=== PATIENT | male | born 1975 | race Native Hawaiian/Other Pacific Islander ===

== ENCOUNTER 2022-08-09 09:42 | Day surgery (SDC) | payer OTHER, SELFPAY ==
[2022-08-08 07:57] VITALS: BMI 30.5
[2022-08-09] VITALS (9 sets, daily range): BP systolic 101–141; BP diastolic 67–92; PULSE 80–96; RESP 9–20; TEMP 36–36.4; O2SAT 97–100; BMI 30.5
[2022-08-09] MEDS: LACTATED RINGERS 1,000 ML 42 ML IV (09:55)
--- NOTE | 2022-08-09 10:15 | PM.PREOP ---
Pre-operative Note COVID-19 Criteria for continued procedure: Expected advancement of disease process, Deterioration of the patient's condition or overall health, Delay expected to result in less-positive ultimate med/surg outcome and Non-surgical alternatives not available or appropriate per current SOC Interval Note History & Physical reviewed/Exam performed by Physician: Yes Changes to H&P: No
[2022-08-09] MEDS: CEFAZOLIN 2 GM/100 ML PREMIX 100 ML IV (10:25)
--- NOTE | 2022-08-09 10:53 | SUR.OPER ---
Supine on padded OR bed, head on pillow, arms secured on padded arm boards at <90 degrees abduction, legs uncrossed, safety belt at thigh, tape over blanket over lower legs.
[2022-08-09] MEDS: BUPIVACAINE LIPOSOME 266 MG/20 ML VIAL INJ (11:00)
[2022-08-09] MEDS: BUPIVACAINE 0.5% W/ EPI (PF) 30 ML VIAL INJ (11:01)
[2022-08-09] MEDS: BACITRACIN 28 GM OINT 1 APPLIC TOP (11:35)
--- NOTE | 2022-08-09 11:53 | P.OP_ITS ---
Operative Date/Time/Diagnoses Date of procedure: 08/09/22 Time of procedure: 11:53 Pre-op diagnosis: 1. Desires sterility. 2. Bilateral hydroceles. Post-op diagnosis: same Procedure & Clinicians Procedure: 1. Bilateral hydrocelectomy (bottle neck technique). 2. Vasectomy. Same procedure as scheduled: Yes Indications: 1. Bilateral hydroceles. 2. Desires sterility. Surgeon: Aparna Bruno Click Yes if Unassisted: Yes Anesthesia Type: General and Local (1.33% Exparel and 0.5% Marcaine with epinephrine.) Operative Notes Findings: 1. Bilateral hydroceles with clear straw colored fluid. 2. Normal testicular appendages- cautery excised. 3. Bilateral cysts of the tunica albuginea Closure Type: primary Specimen(s): none sent Estimated Blood Loss (mL): 1 Blood products transfused: none Procedure in detail: The patient was positioned in supine administered general anesthesia. The lower abdomen, genitalia, and groin were then prepped and draped in sterile fashion. A solution of 0.5% Marcaine with epinephrine was then infiltrated into the skin and subcutaneous dartos fascia in the midline scrotum. The needle-tip cautery pen was then used to create a midline incision in the scrotal raphae. Further cautery pen division of the dartos fascia was conducted toward the right down to the level of the tunica vaginalis. A small opening was then created in the tunica vaginalis and clear, straw-colored fluid was drained from within. The te stis and epididymis were then gently extruded through the small opening and the tunica vaginalis was then reflected superiorly. The testicular appendage was amputated with the cautery pen. It was then tacked along the perimeter of the cord using interrupted 2 Monocryl. The vas deferens was then carefully isolated using blunt, sharp, and cautery technique. The vas hook was then used to engage the vas and with gentle pressure a loop was brought up above the operative plain. Medium surgical clips were then applied proximally and distally. A small segment of the vas was then excised with the cautery pen in the lumen cauterized further. Two the level of the clip. Next, the same steps and maneuvers were performed on the left side to accomplish bilateral bottle neck hydrocelectomy and bilateral vasectomy. The testes were then repositioned in respective hemiscrotum anatomically. The midline septum was then engaged with Allis clamps and gentle traction applied. The dartos fascia was then closed, including the midline septum, using a running vertical mattress of 2-0 Monocryl. The skin was then reapproximated using a running horizontal mattress of 4-0 Monocryl. The skin surface was cleaned and dried. Bacitracin antibiotic ointment was applied to the incision line. Dry sterile fluffs were then applied to the scrotum and the patient was fitted with an athletic supporter. The patient was then awakened, transferred to [facility], and transported to recovery in stable condition. Complications: none Post-operative Condition: stable Disposition: PACU Plan for aftercare: Discharge home.
[2022-08-09] MEDS: fentaNYL 100 MCG/2 ML INJ IV ×2 (12:10→12:27)
[2022-08-09] MEDS: OXYCODONE/ACETAMINOPHEN 5/325 TABLET 1 TAB PO (12:14)
== END 2022-08-09 13:09 | disposition home or self-care (01) ==
PROVIDERS: Referring Provider Specialist; Visit Provider Specialist
PROC: (CPT 55060; principal; 2022-08-09 09:45)
PROC: (CPT 55250; 2022-08-09 09:45)
DX: N43.3 Hydrocele, unspecified (principal); Z30.2 Encounter for sterilization; N44.1 Cyst of tunica albuginea testis
CPT/HCPCS: 55060; 55250; C9290; J0690; J1100; J2405; J2704; J3010

== ENCOUNTER 2023-04-28 09:04 | Emergency (ER) | payer OTHER, SELFPAY ==
[2023-04-28] VITALS (10 sets, daily range): BP systolic 121–185; BP diastolic 92–108; PULSE 79–91; RESP 12–24; TEMP 36.6; O2SAT 97–100; BMI 29.7
--- NOTE | 2023-04-28 09:36 | DI.RAD.S_ITS ---
PROCEDURE: XR CHEST 1V INDICATIONS: chest pain TECHNIQUE: One view of the chest was acquired. COMPARISON: None. FINDINGS: Surgical changes and devices: None. Lungs and pleura: Lungs are clear. No pleural effusions or pneumothorax. Mediastinum: Mediastinal contours appear normal. Heart size is normal. Bones and chest wall: No suspicious bony lesions. Overlying soft tissues appear unremarkable. IMPRESSION: No acute cardiopulmonary abnormality. Dictated by: Zhen Gonzalez M.D. on 04/28/2023 at 10:43 Approved by: Zhen Gonzalez M.D. on 04/28/2023 at 10:43
[2023-04-28 09:57] LABS: INR 0.9 (0.9-1.3); Prothrombin Time 9.9 SECONDS (10.1-12.7)
[2023-04-28 09:59] LABS: PTT Partial Thromboplastin Tim 31 SECONDS (26-36)
[2023-04-28 10:05] LABS: Alanine Aminotransferase 34 IU/L (<50); Albumin 4.6 g/dL (3.5-5.0); Albumin Globulin Ratio 1.7 (1.0-2.8); Alkaline Phosphatase 40 U/L (38-126); Aspartate Aminotransferase 49 IU/L (17-59); Bilirubin Total 0.6 mg/dL (0.2-1.3); Blood Urea Nitrogen 12 mg/dL (9-20); Calcium 9.7 mg/dL (8.4-10.2); Carbon Dioxide 30 mmol/L (22-32); Chloride 96 mmol/L (98-107); Creatine Kinase 86 U/L (55-170); Estimated Glomerular Filt Rate > 60 mL/min (>60); Globulin 2.7 g/dL (1.7-4.1); Glucose 107 mg/dL (70-100); HEMOLYSIS 16 (0-50); Lipase 64 U/L (23-300); Magnesium 1.8 mg/dL (1.6-2.3); Potassium 4.1 mmol/L (3.4-5.1); Sodium 135 mmol/L (137-145); Total Protein 7.3 g/dL (6.3-8.2)
[2023-04-28 10:14] LABS: Troponin I < 0.012 ng/mL (0.01-0.034)
--- NOTE | 2023-04-28 10:30 | PC.NURSE ---
Patient states chest pain started yesterday, and at work today he felt his hands being shaky and checked his BP which was high. Pt had a coworker who gave him one of his lisinopril 10mg to take. Pt states he is not prescribed lisinopril. Pt informed of risks due to taking medications not prescribed. He denies lightheaded at rest, but states occasionally he has been getting lightheaded/dizzy. C/O transient hand tingling.
[2023-04-28 10:37] LABS: Add Manual Diff / Slide Review NO; Basophils Absolute Auto 200 /uL (0-100); Basophils Percent Auto 4.3 % (0-2); Eosinophils Absolute Auto 200 /uL (0-450); Eosinophils Percent Auto 3.3 % (2-4); Hematocrit 44.4 % (41-53); Hemoglobin 15.9 g/dL (13.5-17.5); Lymphocytes Absolute Auto 600 /uL (1100-4500); Lymphocytes Percent Auto 13.3 % (25-40); Mean Corpuscular HGB Conc 35.8 % (30-36); Mean Corpuscular Hemoglobin 37.5 PG (26-34); Mean Corpuscular Volume 104.7 fL (80-100); Monocytes Absolute Auto 200 /uL (0-900); Monocytes Percent Auto 3.4 % (3-14); Neutrophils Absolute Auto 3500 /uL (1500-7000); Neutrophils Percent Auto 75.7 % (50-75); Platelet Count 163 X10^3/uL (150-400); Red Blood Cell Count 4.24 X10^6/uL (4.5-5.9); Red Cell Distribution Width 12.1 % (11.6-14.8); White Blood Cell Count 4.6 X10^3/uL (4.5-11.0)
--- NOTE | 2023-04-28 10:59 | ED.CHESTPAIN ---
HPI - Chest Pain General Chief Complaint: Chest Pain Stated Complaint: being sent DR wynne BP 201/125 Chest pain Time Seen by Provider: 04/28/23 09:38 Source: patient Mode of arrival: Ambulatory Limitations: no limitations History of Present Illness HPI narrative: This is a 47-year-old male with history of hypertension, chronic back pain, hypothyroidism who presents with complaint of elevated blood pressure and some chest tightness this morning. Patient states he occasionally checks his blood pressure especially when he does not feel good. At 7:50 a.m. this morning he had a 176/126. He has a blood pressure cuff at his desk. He states he felt off today jittery felt little pressure in his chest but he states he has been very anxious. He is had some personal stress at work but also his girlfriend has been very stressed about her work situation and is being forced to start working nights and he states this has been a stressor for both of them. He states it is gone currently. He states symptoms started last night. He denies any shortness of breath at any point no diaphoresis. He states his right hand felt tingling as well as his left foot when this was occurring. He denies any radiation. States it was substernal. No nausea no vomiting no issues with bowel movements, no diarrhea constipation, dysuria urgency or frequency. Patient denies any swelling in extremities. Patient states he has been on HCTZ/losartan, Mobic, Synthroid and Flexeril and has prn sildenafil. His co-worker told him his blood pressure was too high so he took an extra lisinopril 10 mg this morning at 7:50 a.m. patient states he does not normally do that. No known drug allergies. Drinks 2-3 alcoholic drinks daily 4-5 on the weekend. Smokes 2/3 pack per day, no recreational drugs or illicit. His primary care is at the [facility]. Related Data Home Medications Medication Instructions Recorded Confirmed hydrochlorothiazide 25 mg tablet 25 mg PO DAILY 08/09/22 09/05/22 levothyroxine 50 mcg tablet 50 mcg PO DAILY 08/09/22 09/05/22 losartan 25 mg tablet 25 mg PO DAILY 08/09/22 09/05/22 cyclobenzaprine 5 mg tablet 5 mg PO TID PRN 09/05/22 09/05/22 Previous Rx's Medication Instructions Recorded hydrochlorothiazide 50 mg tablet 50 mg PO DAILY #30 tabs 04/28/23 Allergies Allergy/AdvReac Type Severity Reaction Status Date / Time No Known Drug Allergies Allergy Verified 04/28/23 09:36 Review of Systems Review of Systems ROS Unobtainable: All systems reviewed & are unremarkable except as noted in HPI and below Patient History Medical History Sleep apnea Bilateral hydrocele Sterilization consult High blood pressure Social History marital status: unmarried,single household members: significant other Smoking Status: Current every day smoker alcohol intake: current Smoking Status: Current every day smoker alcohol intake frequency: 3 or more drinks per day Alcohol type: hard liquor Substance Use Type: does not use Exam Narrative Exam Narrative: GENERAL: Alert and oriented x three, well-appearing male in mild distress. HEENT: Head normocephalic, atraumatic, EOMI, pupils reactive, face symmetric, moist mucous membranes NECK: Supple, full range of motion CARDIOVASCULAR: Regular rate and rhythm without murmurs, rubs or gallops. RESPIRATORY: Breath sounds equal bilaterally, no wheezes rales or rhonchi. No tachypnea or accessory muscle use. ABDOMEN: Soft, nontender. Normoactive bowel sounds all 4 quadrants. No guarding or rebound, rigidity, no mass, no pulsatile bruit or mass. : No CVA tenderness EXTREMITIES: Normal range of motion, no edema. Neurovascularly intact NEUROLOGICAL: Cranial nerves II through XII grossly intact. Moving all extremities SKIN: Warm, dry, no petechiae, no rashes or lesions. Initial Vital Signs Initial Vital Signs: Vital Signs Pulse Rate 88 04/28/23 09:22 Respiratory Rate 21 04/28/23 09:22 Blood Pressure 181/106 H 04/28/23 09:22 Pulse Oximetry 100 04/28/23 09:22 Scores HEART Score Heart Score history: Moderately Suspicious Heart Score EKG: Normal Heart Score Age: 45-64 years old Heart Score risk factors: 1-2 risk factors Heart Score troponin: < or = to normal limit Heart Score Total: 3 Course Orders Ordered: ED Orders 04/28/23 09:36 XR chest 1V Stat 04/28/23 12:05 Trop I [Troponin I] Stat Discontinued Medications Aspirin (Aspirin 81 Mg Chew Tab) 324 mg PO NOW ONE Stop: 04/28/23 09:37 Last Admin: 04/28/23 13:11 Dose: Not Given Documented By: SPF Vital Signs Vital signs: Vital Signs - 8 hr 04/28/23 11:00 04/28/23 11:00 04/28/23 11:33 Pulse Rate 80 91 H Respiratory Rate 24 Blood Pressure 151/100 H Pulse Oximetry 99 Oxygen Delivery Method 04/28/23 12:00 04/28/23 12:10 04/28/23 12:10 Pulse Rate 89 86 Respiratory Rate 18 14 Blood Pressure 185/102 H Pulse Oximetry 99 100 Oxygen Delivery Method Room Air 04/28/23 12:30 04/28/23 13:00 Pulse Rate 86 89 Respiratory Rate 19 22 Blood Pressure Pulse Oximetry 97 98 Oxygen Delivery Method Room Air MDM - Chest Pain Lab Data 04/28/23 09:30 04/28/23 09:30 Labs: Lab Results 04/28/23 04/28/23 Range/Units 09:30 12:05 WBC 4.6 (4.5-11.0) X10^3/uL RBC 4.24 L (4.5-5.9) X10^6/uL Hgb 15.9 (13.5-17.5) g/dL Hct 44.4 (41-53) % MCV 104.7 H (80-100) fL MCH 37.5 H (26-34) PG MCHC 35.8 (30-36) % RDW 12.1 (11.6-14.8) % Plt Count 163 (150-400) X10^3/uL Neut % (Auto) 75.7 H (50-75) % Lymph % (Auto) 13.3 L (25-40) % [place] % (Auto) 3.4 (3-14) % Eos % (Auto) 3.3 (2-4) % Baso % (Auto) 4.3 H (0-2) % Neut # (Auto) 3500 (9094-1833) /uL Lymph # (Auto) 600 L (6178-3458) /uL [place] # (Auto) 200 (0-900) /uL Eos # (Auto) 200 (0-450) /uL Baso # (Auto) 200 H (0-100) /uL PT 9.9 L (10.1-12.7) SECONDS INR 0.9 (0.9-1.3) APTT 31 (26-36) SECONDS Sodium 135 L (137-145) mmol/L Potassium 4.1 (3.4-5.1) mmol/L Chloride 96 L (98-107) mmol/L Carbon Dioxide 30 (22-32) mmol/L BUN 12 (9-20) mg/dL Creatinine 1.00 (0.66-1.25) mg/dL Estimated GFR > 60 (>60) mL/min BUN/Creatinine Ratio 12.0 (6-22) Glucose 107 H (70-100) mg/dL Calcium 9.7 (8.4-10.2) mg/dL Magnesium 1.8 (1.6-2.3) mg/dL Total Bilirubin 0.6 (0.2-1.3) mg/dL AST 49 (17-59) IU/L ALT 34 (<50) IU/L Alkaline Phosphatase 40 (38-126) U/L Total Creatine Kinase 86 (55-170) U/L Troponin I < 0.012 0.014 (0.01-0.034) ng/mL Total Protein 7.3 (6.3-8.2) g/dL Albumin 4.6 (3.5-5.0) g/dL Globulin 2.7 (1.7-4.1) g/dL Albumin/Globulin Ratio 1.7 (1.0-2.8) Lipase 64 (23-300) U/L Imaging Data Chest x-ray: Radiologist's Impression: [place] [address] XRay Report Signed Patient: Burt Richardson MR#: [id number] : 1975 Acct:[id number] Age/Sex: 47 / M Date of Service: 04/28/23 Loc: ED Accession Number: [id number] Procedure: XR chest 1V Ordering Provider: Kenyatta Gongora D.O. PROCEDURE: XR CHEST 1V INDICATIONS: chest pain TECHNIQUE: One view of the chest was acquired. COMPARISON: None. FINDINGS: Surgical changes and devices: None. Lungs and pleura: Lungs are clear. No pleural effusions or pneumothorax. Mediastinum: Mediastinal contours appear normal. Heart size is normal. Bones and chest wall: No suspicious bony lesions. Overlying soft tissues appear unremarkable. IMPRESSION: No acute cardiopulmonary abnormality. Dictated by: Zhen Gonzalez M.D. on 04/28/2023 at 10:43 Approved by: Zhen Gonzalez M.D. on 04/28/2023 at 10:43 ECG Data Attestation: I personally reviewed and interpreted this ECG as follows: Prior ECG tracings: not available for review Interpretation: Sinus rhythm rate of 77 [place] 178 QRS of [address] No acute [address] elevation or depression appreciated small amount of motion artifact appears to be in V4 V5. 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 this morning no acute ST changes are appreciated on it rate is 85 MN 172 QRS 88 QTC 468. MDM Narrative Medical decision making narrative: 47-year-old male sent for elevated blood pressure and chest discomfort. Patient does track his pressures intermittently. He the beginning of the month had 130s over 90s pretty persistently he has been slowly trending up over the last week or 2 most recently was 175/105 systolic on his check. He was elevated upon arrival but has been trending down words during his stay as low as 120/92 but more closely 150s over 90s during his stay. Patient notes in the past when he is followed with his physician he tends to run about 150s systolic. And 90s diastolic. Patient did have some chest discomfort which resolved. This is when his blood pressure was elevated and why he checked it. His initial workup including CBC, CMP, LFTs, troponin and chest x-ray are negative. EKG does not show any obvious acute dynamic changes. He would a prior EKG from this morning which did not show any changes. Do not have any priors compared to this. Discussed with patient plan for repeat troponin if negative likely follow-up with primary care we discussed potentially altering his medications. Patient appears to be maxed out on his losartan dose 100 mg, HCTZ appears to be at 25 mg so will increase to 50mg HCTZ. Discharge Plan Departure Patient Disposition: Home Clinical Impression: Chest pain, Hypertension Activity Restrictions/Additional Instructions: Follow-up with your physician for recheck. Your blood pressure was improving here in the department. Continue to follow your blood pressure checking it once daily at varying times ensure these numbers with your physician. If you have had chest pain or pressure intermittently maybe appropriate to have follow up and discuss stress testing your physician as well. I also included contact information for Cardiology if he would like to follow up with them. Continue your home medications as prescribed. You can increase your HCTZ to 50 mg total daily. Prescription sent to [facility] in [place] Please return for new chest pain, shortness of breath, lightheadedness or passing out, diaphoresis or sweatiness, nausea or vomiting, new swelling in your extremities or other new or concerning changes. Prescriptions: New hydrochlorothiazide 50 mg tablet 50 mg PO DAILY Qty: 30 0RF No Action levothyroxine 50 mcg tablet 50 mcg PO DAILY losartan 25 mg Tablet 25 mg PO DAILY hydrochlorothiazide 25 mg Tablet 25 mg PO DAILY cyclobenzaprine 5 mg tablet 5 mg PO TID PRN Referrals: ProviderAsh [Primary Care Provider] - Candice Mendez MD [Physician] - Stand Alone Forms: Patient Portal/API
[2023-04-28 12:35] LABS: Troponin I 0.014 ng/mL (0.01-0.034)
== END 2023-04-28 13:11 | disposition home or self-care (01) ==
PROVIDERS: Emergency Provider Emergency Medicine
DX: R07.9 Chest pain, unspecified (principal); I10 Essential (primary) hypertension; F17.210 Nicotine dependence, cigarettes, uncomplicated
CPT/HCPCS: 36415; 71045; 80053; 82550; 83690; 83735; 84484; 85025; 85610; 85730; 93005; 99284

== ENCOUNTER 2023-09-11 23:12 | Emergency (ER) | payer OTHER, SELFPAY ==
[2023-09-11 23:22] VITALS: BP 133/87; PULSE 92; RESP 15; TEMP 36.7; O2SAT 97; BMI 28.1
[2023-09-12 00:05] VITALS: BP 151/98; PULSE 95; O2SAT 97
--- NOTE | 2023-09-12 00:22 | ED_ITS ---
HPI - Extremity Problem General Chief complaint: Extremity Problem,Nontraumatic Stated complaint: ghout or cellitius in rt foot Time Seen by Provider: 09/11/23 23:53 Source: patient Mode of arrival: Ambulatory History of Present Illness HPI Narrative: Patient is a 47-year-old male history of hypertension hyperlipidemia hypothyroid presenting today with right great toe pain. He reports that he drinks throughout the day. He puts 2 oz of whiskey and 32 oz of water and drink steadily 3-4 glasses of those daily. He thinks that maybe has caught up to him he has heard of gout. He has no fever chills he denies any sort of injury. It is red hot and swollen. No streaking. It hurts to walk. He was just recently started on all sorts of medications including hydrochlorothiazide losartan and and terbinafine. Related Data Home Medications Medication Instructions Recorded Confirmed hydrochlorothiazide 25 mg tablet 25 mg PO DAILY 08/09/22 09/05/22 levothyroxine 50 mcg tablet 50 mcg PO DAILY 08/09/22 09/05/22 losartan 25 mg tablet 25 mg PO DAILY 08/09/22 09/05/22 cyclobenzaprine 5 mg tablet 5 mg PO TID PRN 09/05/22 09/05/22 Previous Rx's Medication Instructions Recorded hydrochlorothiazide 50 mg tablet 50 mg PO DAILY #30 tabs 04/28/23 naproxen 500 mg tablet 500 mg PO BID PRN pain #20 tabs 09/12/23 Allergies Allergy/AdvReac Type Severity Reaction Status Date / Time No Known Drug Allergies Allergy Verified 04/28/23 09:36 Patient History Medical History Sleep apnea Bilateral hydrocele Sterilization consult High blood pressure Social History marital status: unmarried,single household members: significant other Smoking Status: Current every day smoker alcohol intake: current Smoking Status: Current every day smoker alcohol intake frequency: 3 or more drinks per day Alcohol type: hard liquor Substance Use Type: does not use Exam Initial Vital Signs Initial Vital Signs: Vital Signs Temperature 98.1 F 09/11/23 23:22 Pulse Rate 92 H 09/11/23 23:22 Respiratory Rate 15 03/21/24 23:22 Blood Pressure 133/87 03/21/24 23:22 Pulse Oximetry 97 09/11/23 23:22 Oxygen Delivery Method Room Air 09/11/23 23:22 GENERAL: Well-appearing, well-nourished and in no acute distress. CARDIOVASCULAR: peripheral pulses in tact, cap refill <2 sec RESPIRATORY: No respiratory distress, speaks in full sentences without difficulty EXTREMITIES: Normal range of motion, no clubbing or edema. Neurovascularly intact Right foot great MTP is swollen and erythematous without streaking no break in skin still pedal pulse intact NEUROLOGICAL: Cranial nerves II through XII grossly intact. Normal gait and speech. SKIN: Warm, dry, no petechiae, no rashes or lesions. Right great MTP erythema the foot is not erythematous there is no streaking up the leg Course Orders Ordered: ED Orders 09/12/23 00:26 XR foot RT min 3V Stat Discontinued Medications Hydrocodone Bitart/Acetaminophen (Hydrocodone/Acet 5/325 Prepack) 1 bottle MISC DIRECTED ONE Stop: 09/12/23 01:40 Last Admin: 09/12/23 01:47 Dose: 1 bottle Documented By: HNG Colchicine (Colchicine 0.6 Mg Tablet) 1.2 mg PO NOW ONE Stop: 09/12/23 00:27 Last Admin: 09/12/23 00:39 Dose: 1.2 mg Documented By: AB Vital Signs Vital signs: Vital Signs - 8 hr 09/11/23 23:22 09/12/23 00:05 09/12/23 00:30 Temperature 98.1 F Pulse Rate 92 H 95 H Respiratory Rate 15 Blood Pressure 133/87 151/98 H 157/98 H Pulse Oximetry 97 97 Oxygen Delivery Method Room Air Room Air 09/12/23 00:30 09/12/23 01:00 09/12/23 01:00 Temperature Pulse Rate 93 H 93 H Respiratory Rate Blood Pressure 152/103 H Pulse Oximetry 98 96 Oxygen Delivery Method Room Air Room Air 09/12/23 01:31 09/12/23 01:46 09/12/23 01:46 Temperature Pulse Rate 96 H 91 H Respiratory Rate Blood Pressure 143/105 H Pulse Oximetry 97 Oxygen Delivery Method MDM - Extremity (Nontraumatic) MDM Narrative Medical decision making narrative: Patient 47-year-old male who does drink alcohol sounds daily and throughout the day presents today with right great toe pain and erythema. No prior history of gout certainly sounds suspicious of gout. No fever chills erythema is pretty well localized over the joint. X-ray has been reviewed by myself and no obvious tophi. We discussed how cutting back alcohol and how to taper off safely so he does not have seizures. He is given 1 dose of colchicine here in the ED but thinks he is going to need something stronger to sleep. Looks medications I do not see that any can cause gout. He is given crutches as well. He sees a [facility] primary care provider just started him on medications. Discharge Plan Departure Patient Disposition: Home Clinical Impression: Gout Instructions: Gout Activity Restrictions/Additional Instructions: *You have been diagnosed with probable gout *What to do: At this time do not stop drinking alcohol cold turkey. It needs to be tapered slowly so that you do not go through withdrawal. Way weightbear as tolerated. This maybe related to alcohol or not. Please follow-up with your primary care provider. *Continue to take medications as directed Naproxen 500 mg twice a day-start tomorrow, you were given 1 dose of colchicine 1.2 mg in the emergency department [place] 1 tablet every 6 hours if needed for severe pain *Follow up with your primary care provider in 2-3 days or call [phone] *Return to ER if you should have increasing redness fever streaking pain or any new, worsening or concerning symptoms CONTROLLED SUBSTANCE DISCHARGE (Narcotoic/benzodiazepine/Flexeril/Phenergan) 1. You have been prescribed narcotic medications, it does have acetaminophen/Tylenol/paracetamol in it, DO NOT TAKE MORE THAN 4,00mg in 24 hours of Tylenol. TRAMADOL DOES NOT CONTAIN TYLENOL 2. Please understand that we cannot provide further refills of narcotics, benzodiazepines or controlled substances through the ED and her pain management will need to be through your provider. 3. While on these medications you cannot drive or operate heavy machinery. 4. You cannot sign legal documents or perform any duties such as this. 5. As long as you're taking opiate pain medications he should also be taking a stool softener such as Colace, Dulcolax, MiraLAX or prune juice, to help avoid constipation. Prescriptions: New naproxen 500 mg tablet 500 mg PO BID PRN (Reason: pain) Qty: 20 0RF Rx Instructions: administer with food or milk No Action levothyroxine 50 mcg tablet 50 mcg PO DAILY losartan 25 mg Tablet 25 mg PO DAILY hydrochlorothiazide 25 mg Tablet 25 mg PO DAILY hydrochlorothiazide 50 mg tablet 50 mg PO DAILY Qty: 30 0RF cyclobenzaprine 5 mg tablet 5 mg PO TID PRN Referrals: ProviderAsh [Primary Care Provider] - Stand Alone Forms: Patient Portal/API, Work Release Note
--- NOTE | 2023-09-12 00:26 | DI.RAD.S_ITS ---
PROCEDURE: XR FOOT RT MIN 3V INDICATIONS: great MTP gout TECHNIQUE: 3 views of the foot were acquired. COMPARISON: None. FINDINGS: Bones: No fractures or dislocations. Chronic appearing deformities of metatarsal fractures with healing. No dislocation. No periarticular erosive changes or periostitis. No suspicious bony lesions. Soft tissues: No tibiotalar joint effusion. Achilles tendon appears normal. No suspicious calcifications. IMPRESSION: No acute bony abnormality. Dictated by: Germania Burton M.D. on 09/12/2023 at 1:04 Approved by: Germania Burton M.D. on 09/12/2023 at 1:06
[2023-09-12 00:30] VITALS: BP 157/98; PULSE 93; O2SAT 98
[2023-09-12] MEDS: COLCHICINE 0.6 MG TABLET 1.2 MG PO (00:39)
[2023-09-12 01:00] VITALS: BP 152/103; PULSE 93; O2SAT 96
[2023-09-12 01:31] VITALS: PULSE 96
[2023-09-12 01:46] VITALS: BP 143/105; PULSE 91; O2SAT 97
[2023-09-12] MEDS: HYDROCODONE/ACET 5/325 PREPACK 1 BOTTLE MISC (01:47)
== END 2023-09-12 01:59 | disposition home or self-care (01) ==
PROVIDERS: Emergency Provider Emergency Medicine
DX: M10.9 Gout, unspecified (principal)
CPT/HCPCS: 73630; 99283; 99284